=== PATIENT | male | born 1960 | race Hispanic/Latino ===

== ENCOUNTER → 2024-06-17 | Outpatient (CLI) | payer OTHER ==
--- NOTE | 2024-06-17 16:23 | HMCIMG ---
Exam Type: HIP UNILAT 2-3VW LEFT Clinical Information: HIP INJURY Comparison: None Findings: Status post dynamic compression screw placement left femur. Degenerative change of both hips. No acute fractures or dislocations seen. Degenerative changes lumbosacral junction. IMPRESSION: Chronic changes.
--- NOTE | 2024-06-17 16:31 | HMCIMG ---
Exam Type: KNEE/PATELLA 1-2VWS RT Clinical Information: RT KNEE PAIN Comparison: None Findings: Routine views of the knee are without evidence of fracture, dislocation, arthritic, or inflammatory change. There is status post knee replacement with adequate visualization and alignment of bony and hardware elements. No complications are seen. There are vascular calcifications. The joint space is well maintained and there is no effusion. IMPRESSION: Status post knee replacement.
--- NOTE | 2024-06-17 16:33 | HMCIMG ---
Exam Type: ANKLE 2VWS RT Clinical Information: SEVERE ANKLE INJURY Comparison: None Findings: The bone examination is postoperative changes distal tibia probably representing ORIF of a healed fracture. 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 No acute fractures or dislocations. IMPRESSION: Chronic severe changes as noted.
--- NOTE | 2024-06-17 16:33 | HMCIMG ---
Exam Type: LUMBAR SPINE 2-3VWS Clinical Information: LOWER BACK PAIN Comparison: None Findings: Exam of the lumbosacral spine demonstrates no evidence of fracture or subluxation. There are moderate spondylitic changes. The facet joints show moderate degenerative changes. There is straightening consistent with spasm. The disc spaces are intact. Bone mineralization is normal. Impression: Spondylitic changes and degenerative changes of the apophyseal joints as noted.
== END | disposition home or self-care (01) ==
LOC: RAH 15:08
PROVIDERS: ATTEND Internal Medicine
DX: S79.912A Unspecified injury of left hip, initial encounter (principal); S99.911A Unspecified injury of right ankle, initial encounter; S39.92XA Unspecified injury of lower back, initial encounter; M17.11 Unilateral primary osteoarthritis, right knee; M16.0 Bilateral primary osteoarthritis of hip; M47.817 Spondylosis without myelopathy or radiculopathy, lumbosacral region; M54.50 Low back pain, unspecified; M25.561 Pain in right knee; R55 Syncope and collapse; Z98.890 Other specified postprocedural states; Z96.659 Presence of unspecified artificial knee joint; X58.XXXA Exposure to other specified factors, initial encounter; Y93.89 Activity, other specified; Y92.89 Other specified places as the place of occurrence of the external cause; Y99.8 Other external cause status
CPT/HCPCS: 72100; 73502; 73560; 73600